=== PATIENT | male | born 1960 ===

== ENCOUNTER 2024-06-26 14:23 | Emergency (ER) | payer OTHER ==
[2024-06-26] MEDS ORDERED: Sodium Chloride 0.9% 10 ML Syringe FLUSH PRN (14:32)
[2024-06-26 15:04] LABS: BASOPHILS PERCENT AUTO 0.2 % (0.0-1.0); EOSINOPHILS PERCENT AUTO 0.1 % (1.0-3.0); HEMATOCRIT 39.6 % (40.0-54.0); HEMOGLOBIN 13.4 g/dL (14.0-18.0); LYMPHOCYTES PERCENT AUTO 8.5 % (20.5-50.1); MEAN CORPUSCULAR HEMOGLOBIN 29.4 pg (27.0-34.0); MEAN CORPUSCULAR HGB CONC 33.8 g/dL (33.0-35.0); MEAN CORPUSCULAR VOLUME 86.8 fL (80-100); MONOCYTES PERCENT AUTO 7.6 % (2-8); NEUTROPHILS PERCENT AUTO 83.6 % (42.2-75.2); PLATELET COUNT,PLT 225 10^3/uL (150-450); RED BLOOD CELL COUNT 4.56 10^6/uL (4.6-6.2); WHITE BLOOD CELL COUNT,WBC 28.5 10^3/uL (5.0-10.0)
[2024-06-26] MEDS: Piperacillin/Tazobactam 4.5 GM in Sodium Chloride 0.9% 100 ML IV ONE (15:14)
[2024-06-26] MEDS: Sodium Chloride 0.9% 1,000 ML IV ONE ×3 (15:15→15:50)
[2024-06-26 15:27] LABS: A/G RATIO 0.92; ALBUMIN 3.3 g/dL (3.4-5.0); ANION GAP 15.4 mEq/L (7-13); BUN/CREATININE RATIO 20.6 (No establ ref range); C-REACTIVE PROTEIN 14.94 ng/dL (<=0.50); CALCIUM 9.3 mg/dL (8.5-10.1); CREATININE 1.26 mg/dL (0.70-1.30); EST CRCL DRUG DOSING (CG) 58.06 mL/min; MAGNESIUM 1.6 mg/dL (1.8-2.4); POTASSIUM,K 3.4 mmol/L (3.5-5.1); PROTEIN TOTAL,TP 6.9 g/dL (6.4-8.2)
[2024-06-26] MEDS: Iopamidol 612 MG/ML 100 ML Bottle IVPUSH ONE (15:28)
[2024-06-26 15:30] LABS: LACTIC ACID 1.9 mmol/L (0.4-2.0)
[2024-06-26] MEDS: HYDROmorphone 0.5 MG/0.5 ML Syringe IVPUSH ONE (15:41)
[2024-06-26] MEDS: Ondansetron 4 MG/2 ML SDV IVPUSH ONE (15:43)
[2024-06-26 16:11] LABS: APPEARANCE,URINE CLEAR (CLEAR); BILIRUBIN,URINE NEGATIVE (NEGATIVE); COLOR,URINE YELLOW (YELLOW); GLUCOSE,URINE NEGATIVE (NEGATIVE); KETONES,URINE NEGATIVE (NEGATIVE); LEUKOCYTE ESTERASE,URINE NEGATIVE (NEGATIVE); NITRITE,URINE NEGATIVE (NEGATIVE); OCCULT BLOOD,URINE NEGATIVE (NEGATIVE); PH,URINE 5.5 (5.0-9.0); PROTEIN,URINE TRACE (NEGATIVE); UROBILINOGEN,URINE 0.2 mg/dL (0.2-1.0)
[2024-06-26 16:19] LABS: BACTERIA,URINE RARE /HPF (0-FEW/HPF); EPITHELIAL CELLS,URINE RARE /HPF (NOT SEEN); MUCUS,URINE FEW /LPF (NOT SEEN); RBC,URINE NOT SEEN /HPF (0-5); WBC,URINE 0-5 /HPF (0-5/HPF)
[2024-06-26] MEDS: Acetaminophen 500 MG Tab PO ONE (16:44)
[2024-06-26] MEDS: Ketorolac 30 MG/ML SDV IVPUSH ONE (16:45)
[2024-06-26] MEDS: Acetaminophen 500 MG Tab ONE (17:01)
[2024-06-26] MEDS: Potassium Chloride 10 MEQ Tab.ER PO ONE (17:38)
[2024-06-26] MEDS: Magnesium Sulfate/Water Premix 2 GM in Premix Bag 1 BAG IV ONE (17:42)
== END 2024-06-26 18:15 ==
LOC: DL.ED 14:23
DX: K35.80 Unspecified acute appendicitis (principal); I10 Essential (primary) hypertension; E11.9 Type 2 diabetes mellitus without complications; Z79.84 Long term (current) use of oral hypoglycemic drugs
CPT/HCPCS: 74177; 80053; 81001; 83605; 83735; 85025; 86140; 87040; 87428-QW; 96365; 96367; 96375; 99285-25; A9270-GY; J1885; J2405; J2543; J3475; J3490; J7030; Q9967